=== PATIENT | male | born 1980 | race Caucasian/White ===

== ENCOUNTER 2017-03-01 20:18 | Emergency (ER) | payer SELFPAY ==
[~2017-03-01] VITALS: Ht 185.4 cm; Wt 87.0 kg
[2017-03-01] MEDS ORDERED: LORazepam 2 MG/ML, 1ML ONE (20:36)
[2017-03-01] MEDS ORDERED: SODIUM CHLORIDE 0.9% 1,000ML IVBOLUS ONE (21:00)
[2017-03-01] MEDS ORDERED: LORazepam 2 MG/ML, 1ML IM ONE (21:00)
== END 2017-03-01 21:52 | disposition left against medical advice (07) ==
LOC: ED 21:46
DX: R56.9 Unspecified convulsions (principal); Z91.14 Patient's other noncompliance with medication regimen; Z91.19 Patient's noncompliance with other medical treatment and regimen
CPT/HCPCS: 96372; 99283; J2060